=== PATIENT | female | born 1965 | race Caucasian/White ===

== ENCOUNTER → 2024-08-03 10:17 | Outpatient (REF) | payer OTHER, SELFPAY ==
[2024-08-06 13:35] LABS: Lyme Antibody Screen, EIA Negative (Negative)
== END ==
LOC: REG 10:17
PROVIDERS: ATTENDING PHYSICIAN Family Medicine
DX: T14.8XXA Other injury of unspecified body region, initial encounter (principal); W57.XXXA Bitten or stung by nonvenomous insect and other nonvenomous arthropods, initial encounter; Z20.9 Contact with and (suspected) exposure to unspecified communicable disease
CPT/HCPCS: 36415; 86618

== ENCOUNTER → 2024-09-07 08:40 | Outpatient (REF) | payer OTHER, SELFPAY | LOC: WDC 08:40 | PROVIDERS: ATTENDING PHYSICIAN Family Medicine | DX: Z12.31 Encounter for screening mammogram for malignant neoplasm of breast (principal) | CPT/HCPCS: 77063; 77067 ==

== ENCOUNTER → 2024-09-23 14:46 | Outpatient (REF) | payer OTHER, SELFPAY | LOC: WDC 14:46 | PROVIDERS: ATTENDING PHYSICIAN Family Medicine | DX: R92.8 Other abnormal and inconclusive findings on diagnostic imaging of breast (principal) | CPT/HCPCS: 76642 ==

== ENCOUNTER → 2025-03-22 14:57 | Outpatient (REF) | payer OTHER, SELFPAY | LOC: WDC 14:57 | PROVIDERS: ATTENDING PHYSICIAN Family Medicine | DX: R92.8 Other abnormal and inconclusive findings on diagnostic imaging of breast (principal) | CPT/HCPCS: 76642 ==

== ENCOUNTER 2025-03-29 07:21 | Emergency (ER) | payer OTHER, SELFPAY ==
[2025-03-29 07:22] VITALS: BP 141/98
--- NOTE | 2025-03-29 07:59 | ED.GENMED ---
History of Present Illness
General
Chief Complaint: Cough
Source: patient
Exam Limitations: none
Time Seen by Provider: 03/29/25 07:43
History of Present Illness
History of Present Illness:
See MDM
Past History
Past History
ED Past Medical History: HTN, Other (Migraines) and Other (MAC)
ED Past Surgical History: Negative Cardiac
Social History
Tobacco: Non-smoker
Alcohol: Occasional
Drug: None
Personal:
Living: with family
Employment: Employed
Family History
Family History: Other (Noncontributory)
Phy Exam
Physical Exam
Physical Exam:
See MDM
Course
Orders/Labs/Results
Orders:
Orders
03/29/25 07:57
Lorazepam [Ativan] 1 mg IV NOW STA
03/29/25 07:58
CT Chest PE Study Urgent
Comment: Hx MAC
Reason For Exam: Hemoptysis
03/29/25 08:11
Complete Blood Count/With Diff Urgent
Comprehensive Metabolic Panel Urgent
PTT Urgent
Prothrombin Time Urgent
03/29/25 11:27
US Periph Venous LOWER Ext LT Urgent
Comment:
Reason For Exam: left calf pain
03/29/25 13:03
Guaifenesin/Codeine Solution [Robitussin AC] 10 ml PO NOW STA
Abnormal Lab Results
03/29/25
08:11
Absolute Lymphs (auto) 0.9 L 10^3/uL
(1.2-3.4)
Lymphocytes % 15.3 L %
(20.5-51.1)
Chloride 108 H mmol/L
(98-107)
BUN 21 H mg/dl
(7-17)
Glucose 109 H mg/dl
(70-99)
Total Bilirubin 1.5 H mg/dl
(0.2-1.3)
03/29/25 08:11
03/29/25 08:11
Vital Signs
Initial and Last Documented VS:
Initial Vital Signs
Temp Pulse Resp BP Pulse Ox
98.3 F 76 16 141/98 97
03/29/25 07:22 03/29/25 07:22 03/29/25 07:22 03/29/25 07:22 03/29/25 07:22
Last Documented Vital Signs
Temp Pulse Resp BP Pulse Ox
98.3 F 80 16 117/79 95
03/29/25 07:22 03/29/25 12:34 03/29/25 12:34 03/29/25 12:34 03/29/25 12:34
MDM/Problems Addressed
Differential Diagnosis Includes:
Note:
CHIEF COMPLAINT(S)
Hemoptysis
HISTORY OF PRESENT ILLNESS
The patient is a 60-year-old female with a history of Mycobacterium avium complex (MAC) infection, currently under control with treatment. Presenting with acute onset of hemoptysis over the last two days. Initially, the patient experienced what
seemed like allergy symptoms two weeks ago, with increased mucus production and subsequent development of a cough. The cough was initially clear but turned yellow and then brown, with traces of blood. The morning of presentation, the patient had a
significant episode of coughing up bright red blood, described as a large amount, which was accompanied by shakiness but resolved without recurrent episodes post-event. Past history notes similar symptoms during a COVID-19 infection, though less
severe.
The patient mentions a MAC infection treated over the past three years, with recent maintenance using a regimen of rifampin, ethambutol, and azithromycin. She denies fever, chest pain, or recent travel-related thrombosis risk factors. Patient
reports recent increase in migraine episodes, requiring use of sumatriptan. She has a history of long-term migraines associated with increased blood pressure, managed with losartan and, as needed, spironolactone.
SOCIAL HISTORY
The patient is a lifelong non-smoker and regularly engages in physical activities.
MEDICATIONS
The patients current medications include rifampin, ethambutol, azithromycin, clonazepam, escitalopram, losartan, spironolactone (as needed), and sumatriptan.
PHYSICAL EXAM
General: Well appearing and non-toxic
HEENT: protecting airway
Neck: appears supple
CV: No evidence of cyanosis
Resp: No accessory muscle use. Lungs clear
Abd: Non-distended
Extremities: No deformities. No significant left calf tenderness. No skin changes. No edema
Neuro: alert
Psych: Mildly anxious
Skin: Intact
PLAN
1. Obtain a CT scan to assess for potential pulmonary embolism and other causes of hemoptysis.
2. Consider IV Ativan for symptom management.
3. Continue and assess need for current medications to ensure compliance and adjust as necessary.
CARE-UPDATE
03/29/25 - 11:28
Patient reports feeling better. No new acute findings on CT. Chronic lung changes were discussed. Patient requests ultrasound of left calf to rule out DVT; ultrasound will be obtained. Return precautions discussed.
Disposition:
SUMMARY OF ENCOUNTER
The patient presented with acute onset of hemoptysis over the last two days. As part of the emergency department evaluation, a CT scan was performed to assess for potential pulmonary embolism, with findings revealing no evidence of embolism but
noted chronic changes. Also, an ultrasound was conducted to rule out DVT, which returned negative results.
DISPOSITION
The patient was comfortable with going home after reassurance and negative findings on imaging.
ASSESSMENT
Hemoptysis with a negative workup for pulmonary embolism and DVT, likely related to previously known chronic lung disease.
EMERGENCY TREATMENTS ADMINISTERED
The patient was provided with a cough medicine prescription to manage symptoms.
MANAGEMENT OF THE PATIENTS CARE WAS DISCUSSED WITH
The patient was provided with a CD of the CT scan and a printout of the report for her records.
PLAN
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
INDEPENDENT REVIEW OF LABS AND INTERPRETATION OF TESTS
- My independent interpretation of the CT is that there is no evidence of pulmonary embolism; chronic lung changes are present and acknowledged by the patient.
- My independent interpretation of the ultrasound is that it is negative for DVT.
MEDICAL DECISION MAKING
1. Number & Complexity of Problems: Chronic conditions affecting care include Mycobacterium avium complex infection and associated chronic lung changes.
2. Data Reviewed:
- Category 1: Ordered and reviewed CT scan and ultrasound.
3. Risk: Consideration of admission/observation was made due to complexity/risk. However, outpatient management is appropriate based on reassuring work-up, stable vitals, symptom control, and follow-up reliability.
*Pulse Oximetry
SaO2: 97
Oxygen Mode of Delivery: Room air
Patient hypoxic: no
*Critical Care Note
Total Time (30-74mins, 75-104mins- exclusive of procedures): Not Applicable
ED Attending Note
-
Portions of this chart may have been created with voice recognition software.� Occasional wrong word or��sound alike� substitutions may have occurred due to the inherent limitations of voice recognition software.
Discharge Plan
Departure
Patient Disposition: Home (Routine Discharge)
Date of Disposition: 03/29/25
Time of Disposition: 13:05
Patient with high blood pressure during this ER visit?: No
Discharge Problem:
Hemoptysis
Instructions: Coughing up blood
Prescriptions:
New
codeine-guaifenesin 10-100 mg/5 mL liquid
10 ml PO BID PRN (Reason: Cough) Qty: 200 0RF
Referrals:
Holger Vitale DO [Family Provider, Family Practice]
Activity Restrictions/Additional Instructions:
Please return for any worsening symptoms.
You may return at any time if you have further concerns.
Please follow up with your doctor at the first available appointment, preferably this week.
Thank you for choosing [facility].
Interventions
Interventions:
*Risk Screen - Suicide Last Done: 03/29/25 07:54
*General Assessment Last Done: 03/29/25 08:20
*Neglect/Abuse Screening Last Done: 03/29/25 07:54
*ED- Fall Risk Assessment Last Done: 03/29/25 07:53
*ED COVID-19 Vaccine History Last Done: 03/29/25 07:53
ED- Pulmonary Assessment Last Done: 03/29/25 07:53
Discharge Date and Time
Print Language: NORWEGI[place]
[2025-03-29] MEDS: ATIVAN 1 MG IV (08:13)
[2025-03-29 08:25] LABS: % Basophils 1.4 % (0-2); % Eosinophils 1.6 % (0-6); % Immature Granulocytes 0.3 % (0-0.5); % Lymphocytes 15.3 % (20.5-51.1); % Monocytes 7.1 % (1.7-9.3); % Neutrophils 74.3 % (42.2-75.2); Absolute Basophils 0.1 10^3/uL (0-0.2); Absolute Eosinophils 0.1 10^3/uL (0-0.7); Absolute Lymphocytes 0.9 10^3/uL (1.2-3.4); Absolute Monocytes 0.4 10^3/uL (0.1-0.6); Absolute Neutrophils 4.3 10^3/uL (1.4-6.5); Hematocrit 42.8 % (37.0-47.0); Hemoglobin 14.5 g/dL (12.0-16.0); Mean Corp Hgb Conc. 33.9 g/dL (33.0-37.0); Mean Corpuscular Hgb 28.6 pg (27.0-31.0); Mean Corpuscular Volume 84.4 fL (81.0-99.0); Mean Platelet Volume 8.8 fL (7.4-10.4); Nucleated Red Blood Cells % 0 %; Platelet Count 282 10^3/uL (130-400); Red Blood Cell Count 5.07 10^6/uL (4.20-5.40); Red Cell Dist. Width 11.9 % (11.5-14.5); White Blood Cell Count 5.8 10^3/uL (4.8-10.8)
[2025-03-29 08:34] LABS: PT 13.5 Sec (11.4-14.6)
[2025-03-29 08:38] LABS: ALT (SGPT) 22 U/L (0-35); AST (SGOT) 24 U/L (14-36); Albumin 4.9 g/dl (3.5-5.0); Alkaline Phosphatase 73 U/L (38-126); Blood Urea Nitrogen 21 mg/dl (7-17); Calcium 9.5 mg/dl (8.4-10.2); Carbon Dioxide 24 mmol/L (22-30); Chloride 108 mmol/L (98-107); Glucose 109 mg/dl (70-99); Potassium 4.1 mmol/L (3.5-5.1); Sodium 141 mmol/L (135-145); Total Bilirubin 1.5 mg/dl (0.2-1.3); Total Protein 7.7 g/dl (6.3-8.2); eGFR > 60.00
[2025-03-29 10:22] VITALS: BP 127/76
[2025-03-29 11:24] VITALS: BP 116/71
[2025-03-29 12:34] VITALS: BP 117/79
[2025-03-29] MEDS: ROBITUSSIN AC 10 ML PO (13:15)
== END 2025-03-29 13:30 | disposition home or self-care (01) ==
LOC: EMR 07:21
PROVIDERS: EMERGENCY PHYSICIAN Student in an Organized Health Care Education/Training Program; FAMILY PHYSICIAN Family Medicine
DX: R04.2 Hemoptysis (principal); I10 Essential (primary) hypertension; M79.662 Pain in left lower leg; Z86.19 Personal history of other infectious and parasitic diseases; Z79.899 Other long term (current) drug therapy
CPT/HCPCS: 96374; 99284; 71275; 80053; 85025; 85610; 85730; 93971; Q9967

== ENCOUNTER → 2025-09-13 19:16 | Outpatient (REF) | payer OTHER, SELFPAY | LOC: WDC 19:16 | PROVIDERS: ATTENDING PHYSICIAN Family Medicine | DX: Z12.31 Encounter for screening mammogram for malignant neoplasm of breast (principal) | CPT/HCPCS: 77063; 77067 ==